=== PATIENT | male | born 1970 | race Native Hawaiian/Other Pacific Islander ===

== ENCOUNTER 2018-11-21 07:42 | Day surgery (SDC) | payer SELFPAY ==
[~2018-11-21 07:42] MED LIST: ANCEF/STERILE WATER 2 GM/20 ML 2 GM/20 ML SYRINGE IV SCH; LACTATED RINGERS 1,000 ML IV SCH; NEURONTIN PO NR; VERSED IV NR
[2018-11-21] MEDS ORDERED: NACL BACTERIOSTATIC INFILTRATI ONE (08:14)
--- NOTE | 2018-11-21 08:24 | Anesthesia Consultation ---
Anesthesia Consult and Med Hx Date of service: 11/21/18 - Airway Anesthetic Teeth Evaluation: Good ROM Head & Neck: Adequate Mental/Hyoid Distance: Adequate Mallampati Class: Class III Intubation Access Assessment: Possibly Difficult - Pulmonary Exam CTA: Yes - Cardiac Exam Cardiac Exam: RRR - Pre-Operative Health Status ASA Pre-Surgery Classification: ASA2 Proposed Anesthetic Plan: General - Pulmonary Hx Smoking: Yes (former smoker 20yrs ago) Hx Sleep Apnea: No (CHERIE PRE SCREEN LOW RISK) - Cardiovascular System Hx Hypertension: No Hx Heart Attack/AMI: No Hx Percutaneous Transluminal Coronary Angioplasty (PTCA): No - Central Nervous System Hx Seizures: No CVA: No - Gastrointestinal Hx Gastroesophageal Reflux Disease: No - Endocrine Hx Renal Disease: No Hx Liver Disease: No Hx Non-Insulin Dependent Diabetes: Yes Hx Thyroid Disease: No - Other Systems Hx Obesity: No - Additional Comments Anesthesia Medical History Comments: No prior Ga. No FHx anesthetic complications.
[2018-11-21] MEDS ORDERED: DILAUDID IV PRN (08:25)
--- NOTE | 2018-11-21 08:25 | Anesthesia Day of Surgery ---
Anesthesia Day of Surgery - Day of Surgery Patient Examined: Yes Patient H&P Reviewed: Yes Patient is NPO: Yes
[2018-11-21] MEDS ORDERED: SUBLIMAZE ONE (08:26)
[2018-11-21] MEDS ORDERED: DIPRIVAN 10 MG/ML IV ONE (08:26)
[2018-11-21] MEDS ORDERED: ceFAZolin 2 GM in NACL 0.9% 100 ML IV ONE (09:30)
[2018-11-21] MEDS ORDERED: XYLOCAINE MPF 2% ONE (09:39)
[2018-11-21] MEDS ORDERED: ZEMURON IV ONE (09:39)
[2018-11-21] MEDS ORDERED: MARCAINE-EPI 0.5%-1:200,000 INFILTRATI ONE ×2 (09:47→10:38)
[2018-11-21] MEDS ORDERED: NACL 0.9% IR ONE (10:39)
--- NOTE | 2018-11-21 11:10 | Discharge Summary ---
Short Stay Discharge Plan Activity: other (observe x 4 hrs then september d/c if stable and able to void. ice pack R groin x 6 hrs. scrotal support x 3 days. no lifting over 5 lbs x 3 wks. keep dressings dry x 5 days) Diet: other (cl liq diet advance to high fiber solid as mike) Wound: keep clean and dry Additional Instructions: aleve I po q 6-8 hrs prn for breakthrough pain. surfak I po q am x 3 Follow up with: LUCRECIA ORR MD [Staff Physician] - 7 Days
--- NOTE | 2018-11-21 11:23 | Operative Report ---
PREOPERATIVE DIAGNOSIS: Right inguinal hernia. POSTOPERATIVE DIAGNOSIS: Direct right inguinal hernia with lipoma of cord. PROCEDURE: 1. Open right inguinal hernia repair with mesh. 2. Excision of lipoma of cord. SURGEON: Luis Eduardo Bravo MD ANESTHESIA: General. ESTIMATED BLOOD LOSS: Minimal. DRAINS: None. COMPLICATIONS: None. DESCRIPTION OF PROCEDURE: The patient was taken to the operating room, prepped and draped in usual sterile fashion. Incision was made using his landmarks anterior superior iliac spine and pubic tubercle. Incision was carried down to the external oblique fascia. External oblique fascia was transected down to the external inguinal ring. Cord was then isolated with a [place] drain. Cord was inspected and no indirect hernia sac was noted. A lipoma of the cord was noted, which was removed and sent as specimen. Palpation of the floor revealed a fairly large direct inguinal hernia. Keyhole Marlex mesh was used to reconstruct the inguinal canal floor. The mesh was tacked to the area of the lower Claudio's ligament. Medially, the mesh was secured to the transversalis fascia and laterally to the iliopubic tract with #1 and 0 Surgilon sutures. Air was then irrigated copiously and dried. Checked for hemostasis and noted to be dry. All cord structures were inspected and noted to be intact. The cord was then on laid over the mesh. The external oblique fascia was closed over the cord with running 3-0 Vicryl suture. Subcutaneous tissues irrigated and skin closed with bee. A 0.5% Marcaine with epinephrine was infiltrated over the fascia, subcutaneous, and skin for postop pain relief. Ilioinguinal nerve block was also performed. The patient tolerated the procedure well and left OR in stable condition. JOB# [id number] FP/NTS
[2018-11-21] MEDS ORDERED: BLOXIVERZ ONE (11:30)
[2018-11-21] MEDS ORDERED: ROBINUL ONE (11:30)
[2018-11-21] MEDS ORDERED: QUELICIN ONE (11:30)
[2018-11-21] MEDS ORDERED: DECADRON ONE (11:30)
[2018-11-21] MEDS ORDERED: NEO-SYNEPHRINE ONE (11:30)
[2018-11-21] MEDS ORDERED: NORCO 5/325 PO PRN (11:31)
[2018-11-21] MEDS ORDERED: ZOFRAN IV PRN (13:40)
[2018-11-21 17:22] VITALS: BP 114/62
== END 2018-11-21 07:43 | disposition home or self-care (01) ==
LOC: OR 07:42
PROVIDERS: ATTEND Surgery
DX: K40.90 Unilateral inguinal hernia, without obstruction or gangrene, not specified as recurrent (principal); D17.6 Benign lipomatous neoplasm of spermatic cord; E78.00 Pure hypercholesterolemia, unspecified; E11.9 Type 2 diabetes mellitus without complications; Z87.891 Personal history of nicotine dependence; Z98.890 Other specified postprocedural states; Z79.899 Other long term (current) drug therapy; Z79.84 Long term (current) use of oral hypoglycemic drugs
CPT/HCPCS: 49505; 82962; 88304; C1781; J0330; J0690; J1100; J1170; J2250; J2370; J2405; J2704; J2710; J3010; J7120